=== PATIENT | male | born 1940 | race Caucasian/White ===

== ENCOUNTER → 2020-10-28 13:27 | Outpatient (BNVA) | payer MEDICARE, OTHER, SELFPAY | PROVIDERS: PCP Internal Medicine; Visit Provider Urology | DX: Z13.89 Encounter for screening for other disorder (principal) | CPT/HCPCS: Q3014 ==

== ENCOUNTER → 2021-10-28 14:09 | Outpatient (BNVA) | payer MEDICARE, OTHER, SELFPAY | PROVIDERS: PCP Internal Medicine; Visit Provider Urology | DX: N40.1 Benign prostatic hyperplasia with lower urinary tract symptoms (principal); R35.1 Nocturia; Z79.899 Other long term (current) drug therapy | CPT/HCPCS: 51798; 99212 ==

== ENCOUNTER 2022-12-22 15:36 | Outpatient (AMB) | payer MEDICARE, OTHER, SELFPAY ==
--- NOTE | 2022-12-22 15:41 | A.OFFVIS_ITS ---
Intake Intake Visit Reasons: yearly follow up/PVR Intake Note: Patient is Present for Follow Up Urology Medication: Finasteride Antibiotic Allergies: Penicillins Blood Thinners: Xarelto PVR:60 Allergies BIBI Inhibitors [BIBI INHIBITORS] Allergy (Severe, Verified 10/27/21 15:33) SWELLING penicillin V Allergy (Unknown, Verified 10/27/21 15:33) swelling Penicillins [PENICILLINS] Allergy (Unknown, Verified 10/27/21 15:33) RASH BIBI inhipitors Allergy (Unknown, Uncoded 10/27/21 15:33) swelling Medication List - Last Reconciled 12/22/22 by Kenneth Mejía MD finasteride 5 mg PO DAILY 90 days furosemide 20 mg PO DAILY PRN glyburide 5 mg PO DAILY losartan 25 mg PO DAILY metformin ER 1,500 mg PO BEDTIME metoprolol tartrate 0 mg PO rivaroxaban (Xarelto) 20 mg PO DAILY rosuvastatin 5 mg PO DAILY spironolactone 25 mg PO DAILY HPI HPI Comments History of Present Illness Details Mo is a pleasant male. He is a patient Dr. Ambriz. 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[employer] Lower urinary tract symptoms Patient here for further evaluation of lower urinary tract symptoms Current therapy finasteride PSA - 10/11 0.9, 10/12 0.9 Will maintain current therapy with yearly evaluation [facility] Medical History (Updated 02/10/23 @ 16:48 by Kenneth Mejía MD) Nocturia Hyperlipidemia HTN (hypertension) Benign prostatic hyperplasia with lower urinary tract symptoms Surgical History History of surgery Review of Systems Const Denies chills and Denies fever(s) Card Reports no additional complaints and Denies syncope Resp Denies cough GI Denies abdominal pain and Denies heartburn Reports as per HPI and Denies change in libido Neuro Denies syncope Psych Denies change in libido Endo Denies change in libido Physical Exam Const General: cooperative, healthy appearing, comfortable and no acute distress Orientation/consciousness: patient oriented x3 HEENT Face and sinus: Yes normal facial exam Mouth: moist mucous membranes Neck Neck: Yes normal visual inspection, Yes full ROM and Yes trachea midline Chest Chest palpation & inspection: normal inspection of the chest Resp Effort & Inspection: normal respiratory effort, able to speak in complete sentences and no respiratory distress GI Inspection: Yes normal to inspection Back/Spine/Pelvis Cervical Spine: normal cervical lordosis Thoracic/Lumbar Spine: thoracic and lumbar spine normal to inspection Skin General skin exam: no rashes or lesions noted Neuro General: patient oriented x3, gait normal, tone normal and moves all extremities Extrem General: Yes normal to inspection and Yes capillary refill normal Office Procedures Post Void Residual Post Residual Void Post Void Residual (PVR): 60 [id number] Void Residual by ultrasound Assessment & Plan Assessment & Plan (1) Benign prostatic hyperplasia with lower urinary tract symptoms: Code(s): N40.1 - Benign prostatic hyperplasia with lower urinary tract symptoms (2) Nocturia: Code(s): R35.1 - Nocturia Plan Continue yearly review Orders: Orders AMB Post Void Residual by ultrasound 12/22/22 N40.1 - Benign prostatic hyperplasia with lower urinary tract symptoms Prostate Specific Antigen 364 Days N40.1 - Benign prostatic hyperplasia with lower urinary tract symptoms Patient Instructions: Imaging studies, laboratory and physical exam results were discussed and reviewed in detail. No major barriers to patient understanding were identified. An opportunity to ask questions regarding the treatment plan was provided. All questions were answered. The patient expressed understanding and agreement with the above treatment plan. The patient is aware they should contact our office by phone for worsening of their current condition or the appearance of new urologic symptoms. Compliance is encouraged with any medications and followup testing that is ordered. It is a privilege to participate in the urologic care of your patient. If you have any questions or concerns regarding treatment for the above conditions, or other urologic issues, please do not hesitate to contact me. The office telephone contact is [phone]. This note is constructed using voice recognition software. While every effort has been made to ensure accuracy embedded software development engineer errors may have been included. Yours sincerely, Dr Kenneth Mejía MD, [facility] - Urology Providers of Expert, Compassionate Care for the Genitourinary System Coding Level of Care Code Est Pt Level 4 (92319) Diagnoses Benign prostatic hyperplasia with lower urinary tract symptoms N40.1 Nocturia R35.1 CPT Codes Post Residual Void - PVR CPT Code: 85512-Siaf Void Residual by ultrasound ([id number])
== END 2022-12-22 16:19 | disposition home or self-care (01) ==
PROVIDERS: Visit Provider Urology
DX: N40.1 Benign prostatic hyperplasia with lower urinary tract symptoms (principal); R35.1 Nocturia
CPT/HCPCS: 99213

== ENCOUNTER → 2022-12-22 15:36 | Outpatient (BNVA) | payer MEDICARE, OTHER, SELFPAY | PROVIDERS: Visit Provider Urology | DX: N40.1 Benign prostatic hyperplasia with lower urinary tract symptoms (principal); R35.1 Nocturia; Z79.899 Other long term (current) drug therapy | CPT/HCPCS: 51798; 99212 ==

== ENCOUNTER 2023-04-27 12:02 | Outpatient (REF) | payer MEDICARE, OTHER, SELFPAY ==
[2023-04-27 14:21] LABS: Appearance Urine Clear; Color Urine Yellow; Glucose Urine UA Negative (Negative); Leukocyte Esterase Urine Negative (Negative); Nitrite Urine Negative (Negative); Specific Gravity - Urine <= 1.005 (1.005-1.025); UMIC TRIGGER UA YES; Urine Blood Large (3+) (Negative); Urine Ketones Negative (Negative); Urine Protein Negative (Neg-Trace)
[2023-04-27 14:36] LABS: Bacteria Urine None Seen (None Seen); Hyaline Casts Urine 0-2 /LPF (0-2); RBC Urine 0-2 /HPF (0-2); Squamous Epithelial Cell Urine 0-2 /HPF (0-2); WBC Urine 0-5 /HPF (0-5)
== END 2023-04-27 12:03 | disposition home or self-care (01) ==
LOC: HO.WFDLDS 12:02
PROVIDERS: Visit Provider Urology
DX: N40.1 Benign prostatic hyperplasia with lower urinary tract symptoms (principal)
CPT/HCPCS: 81001; 87086

== ENCOUNTER 2023-06-28 10:49 | Outpatient (REF) | payer MEDICARE, OTHER, SELFPAY ==
[2023-06-28 20:24] LABS: Urine Cytology See Pathology rpt
== END 2023-06-28 10:50 | disposition home or self-care (01) ==
LOC: HO.LAB 10:49
PROVIDERS: PCP Internal Medicine; Visit Provider Urology
DX: R35.1 Nocturia (principal); R31.29 Other microscopic hematuria; N40.1 Benign prostatic hyperplasia with lower urinary tract symptoms
CPT/HCPCS: 52000; 81003; 88112; 99212

== ENCOUNTER 2023-06-28 10:49 | Outpatient (AMB) | payer MEDICARE, OTHER, SELFPAY ==
--- NOTE | 2023-06-28 11:03 | MHC.OFFVIS ---
Intake Visit Reasons: cysto/nocturia/hematuria/ER follow up Intake Note: Patient is Present for Cystoscopy for hematuria Urology Med: Finasteride Antibiotic Allergy: Penicillin Blood Thinner:Xarelton, Patient states aspirin URO- G Disposable Cystoscope lot: [id number] exp:03/24/2026 Patient states that he was informed to take blood thinner daily and due to him taking Blood thinner daily patient was experiencing blood in urine Patient states that since he stopped the antibiotic he has not seen any blood in his urine states that it has been 3 weeks with no blood Allergies BIBI Inhibitors [BIBI INHIBITORS] Allergy (Severe, Verified 06/28/23 11:08) SWELLING penicillin V Allergy (Unknown, Verified 06/28/23 11:08) swelling Penicillins [PENICILLINS] Allergy (Unknown, Verified 06/28/23 11:08) RASH BIBI inhipitors Allergy (Unknown, Uncoded 06/28/23 11:08) swelling Medication List - Last Reconciled 06/28/23 by Kenneth Mejía MD finasteride 5 mg PO DAILY 90 days furosemide 20 mg PO DAILY PRN glyburide 5 mg PO DAILY losartan 25 mg PO DAILY metformin ER 1,500 mg PO BEDTIME metoprolol tartrate 0 mg PO rivaroxaban (Xarelto) 20 mg PO DAILY rosuvastatin 5 mg PO DAILY spironolactone 25 mg PO DAILY HPI Comments Details: Mo is a pleasant male. He is a patient Dr. Ambriz. He is seen for the following urologic conditions - lower urinary tract symptoms Episode of hematuria. Had been on aspirin plus Xarelto for AF. Improved after came off aspirin. 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 Prostatic regrowth Neovascularity Likely cause of hematuria Did have leukocytes and glucose in urine. states has had high sugars. Lower urinary tract symptoms Patient here for further evaluation of lower urinary tract symptoms Current therapy finasteride PSA - 10/11 0.9, 10/12 0.9 Will maintain current therapy with yearly evaluation [facility] Medical History Nocturia Hyperlipidemia HTN (hypertension) Benign prostatic hyperplasia with lower urinary tract symptoms Surgical History History of surgery Review of Systems Const Denies chills and Denies fever(s) Card Reports no additional complaints and Denies syncope Resp Denies cough GI Denies abdominal pain and Denies heartburn Reports as per HPI and Denies change in libido Neuro Denies syncope Psych Denies change in libido Endo Denies change in libido Physical Exam Const General: cooperative, healthy appearing, comfortable and no acute distress Orientation/consciousness: patient oriented x3 HEENT Face and sinus: Yes normal facial exam Mouth: moist mucous membranes Neck Neck: Yes normal visual inspection, Yes full ROM and Yes trachea midline Chest Chest palpation & inspection: normal inspection of the chest Resp Effort & Inspection: normal respiratory effort, able to speak in complete sentences and no respiratory distress GI Inspection: Yes normal to inspection Back/Spine/Pelvis Cervical Spine: normal cervical lordosis Thoracic/Lumbar Spine: thoracic and lumbar spine normal to inspection Skin General skin exam: no rashes or lesions noted Neuro General: patient oriented x3, gait normal, tone normal and moves all extremities Extrem General: Yes normal to inspection and Yes capillary refill normal Office Procedures Cystoscopy Consent Discussed risk and benefit or proposed procedure with the patient. Information consent for procedure given to the patient. Discussed technical aspects, risks, benefits and alternatives in full. Addressed all of the patient's questions and concerns regarding the procedure. The patient demonstrated knowledge and understanding. They wish to proceed with this procedure. Preparation The patient was prepped in the usual manner. A stone gang sawyer was present and in the room. Genitalia was prepped with betadine solution in a sterile manner. Lidocaine Jelly 2% was placed into the urethra and 16Fr flexible Olympus cystoscope was inserted into the meatus after adequate lubrication. Procedure Cystoscopy performed using a disposable Urovue digital 16 Divehi cystoscope. 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 Wind Turbine Mechanical Engineer 10 mL intra-urethral 10 mL nitrofurantoin monohydrate/macrocrystals 100 mg capsule Performing Provider: Kenneth Mejía MD Performing Location: [facility] [place] [facility] Administered by: Mary Hopkins RN on 06/28/23 11:21 Dose Route Admin Location Dispensed Lot Number Expiration Date [place] [employer]urbine Mechanical Engineer 100 mg PO 1 cap naproxen 500 mg tablet Performing Provider: Kenneth Mejía MD Performing Location: [facility] [place] [facility] Administered by: Mary Hopkins RN on 06/28/23 11:21 Dose Route Admin Location Dispensed Lot Number Expiration Date [place] [employer] Mechanical Engineer 500 mg PO 1 tab Results AMB Urinalysis, Automated UA Leukoctes 15 Yani/uL Last Edit by DARRYN Candelario on 06/28/23 11:16 UA Nitrite Negative Last Edit by DARRYN Candelario on 06/28/23 11:16 UA Urobilinogen 0.2 mg/dL Last Edit by DARRYN Candelario on 06/28/23 11:16 UA Protein 15 mg/dL Last Edit by DARRYN Candelario on 06/28/23 11:16 UA pH 6.0 Last Edit by DARRYN Candelario on 06/28/23 11:16 UA Blood 10 Bunny/uL Last Edit by DARRYN Candelario on 06/28/23 11:16 UA Specific Richards 1.015 Last Edit by DARRYN Candelario on 06/28/23 11:16 UA Ketone Negative Last Edit by DARRYN Candelario on 06/28/23 11:16 UA Bilirubin 0 mg/dL Last Edit by DARRYN Candelario on 06/28/23 11:16 UA Glucose 500 mg/dL Last Edit by DARRYN Candelario on 06/28/23 11:16 Results Reviewed Results Reviewed: Laboratory Last Values Urine pH (Auto) 6.0 06/28/23 11:12 Specific Richards (Auto) 1.015 06/28/23 11:12 Urine Protein (Auto) 15 mg/dL 06/28/23 11:12 Glucose (UA)(Auto) 500 mg/dL 06/28/23 11:12 Urine Ketones (Auto) Negative 06/28/23 11:12 Urine Blood (Auto) 10 Bunny/uL 06/28/23 11:12 Urine Nitrite (Auto) Negative 06/28/23 11:12 Urine Bilirubin (Auto) 0 mg/dL 06/28/23 11:12 Urine Urobilinogen (Auto) 0.2 mg/dL 06/28/23 11:12 Leukocyte Esterase (Auto) 15 Yani/uL 06/28/23 11:12 Assessment & Plan Assessment & Plan (1) Nocturia: Code(s): R35.1 - Nocturia Category: Medical (2) Benign prostatic hyperplasia with lower urinary tract symptoms: Code(s): N40.1 - Benign prostatic hyperplasia with lower urinary tract symptoms Category: Medical (3) Gross hematuria: Code(s): R31.0 - Gross hematuria Category: Medical Plan Twelve month follow-up Orders: Orders AMB Cystoscopy Today N40.1 - Benign prostatic hyperplasia with lower urinary tract symptoms Urine Cytology Today R31.29 - Other microscopic hematuria AMB Urinalysis Automated Today N40.1 - Benign prostatic hyperplasia with lower urinary tract symptoms, Z13.9 - Encounter for screening, unspecified Medications: Refilled finasteride 5 mg PO DAILY 90 days 90 tabs 3RF N40.1 - Benign prostatic hyperplasia with lower urinary tract symptoms Patient Instructions: Imaging studies, laboratory and physical exam results were discussed and reviewed in detail. No major barriers to patient understanding were identified. An opportunity to ask questions regarding the treatment plan was provided. All questions were answered. The patient expressed understanding and agreement with the above treatment plan. The patient is aware they should contact our office by phone for worsening of their current condition or the appearance of new urologic symptoms. Compliance is encouraged with any medications and followup testing that is ordered. It is a privilege to participate in the urologic care of your patient. If you have any questions or concerns regarding treatment for the above conditions, or other urologic issues, please do not hesitate to contact me. The office telephone contact is [phone]. This note is constructed using voice recognition software. While every effort has been made to ensure accuracy electrical line mechanic errors may have been included. Yours sincerely, Dr Kenneth Mejía MD, [facility] - Urology Providers of Expert, Compassionate Care for the Genitourinary System Coding Level of Care Code Est Pt Level 4 (44904) Diagnoses Nocturia R35.1 Benign prostatic hyperplasia with lower urinary tract symptoms N40.1 Gross hematuria R31.0 CPT Codes Cystoscopy - CPT: 47815-[id number] ([id number])
== END 2023-06-28 11:46 | disposition home or self-care (01) ==
PROVIDERS: PCP Internal Medicine; Visit Provider Urology
DX: R35.1 Nocturia (principal); N40.1 Benign prostatic hyperplasia with lower urinary tract symptoms; R31.0 Gross hematuria; Z13.9 Encounter for screening, unspecified
CPT/HCPCS: 52000; 99214

== ENCOUNTER 2024-06-27 13:19 | Outpatient (AMB) | payer MEDICARE, OTHER, SELFPAY ==
--- NOTE | 2024-06-27 13:38 | A.OFFVIS_ITS ---
Intake Visit Reasons: 1y/PVR Intake Note: Patient is present for 1Y/PVR Urology Medication:FINASTERIDE Antibiotic Allergy:PENICILLINS Blood Thinner:RIVAROXABAN TODAY'S PVR:48ML'S Loading Machine Operator Required: No Allergies BIBI Inhibitors [BIBI INHIBITORS] Allergy (Severe, Verified 06/27/24 13:39) SWELLING penicillin V Allergy (Unknown, Verified 06/27/24 13:39) swelling Penicillins [PENICILLINS] Allergy (Unknown, Verified 06/27/24 13:39) RASH BIBI inhipitors Allergy (Unknown, Uncoded 06/27/24 13:39) swelling HPI Comments Details: Mo is a pleasant male. He is a patient Dr. Ambriz. He is seen for the following urologic conditions - lower urinary tract symptoms 12 month follow-up Trace blood Trace glucose Continue finasteride Hematuria Had been on combination aspirin prostate Xarelto for AF Cystoscopy 07/14 prostatic regrowth Lower urinary tract symptoms Patient here for further evaluation of lower urinary tract symptoms Current therapy finasteride PSA - 10/11 0.9, 10/12 0.9 Will maintain current therapy with yearly evaluation [facility] Medical History Nocturia Hyperlipidemia HTN (hypertension) Benign prostatic hyperplasia with lower urinary tract symptoms Surgical History History of surgery Review of Systems Const Denies chills and Denies fever(s) Card Reports no additional complaints and Denies syncope Resp Denies cough GI Denies abdominal pain and Denies heartburn Reports as per HPI and Denies change in libido Neuro Denies syncope Psych Denies change in libido Endo Denies change in libido Physical Exam Const General: cooperative, healthy appearing, comfortable and no acute distress Orientation/consciousness: patient oriented x3 HEENT Face and sinus: Yes normal facial exam Mouth: moist mucous membranes Neck Neck: Yes normal visual inspection, Yes full ROM and Yes trachea midline Chest Chest palpation & inspection: normal inspection of the chest Resp Effort & Inspection: normal respiratory effort, able to speak in complete sentences and no respiratory distress GI Inspection: Yes normal to inspection Back/Spine/Pelvis Cervical Spine: normal cervical lordosis Thoracic/Lumbar Spine: thoracic and lumbar spine normal to inspection Skin General skin exam: no rashes or lesions noted Neuro General: patient oriented x3, gait normal, tone normal and moves all extremities Extrem General: Yes normal to inspection and Yes capillary refill normal Office Procedures Post Void Residual Post Residual Void Post Void Residual (PVR): 48 [id number] Void Residual by ultrasound Assessment & Plan Assessment & Plan (1) Benign prostatic hyperplasia with lower urinary tract symptoms: Code(s): N40.1 - Benign prostatic hyperplasia with lower urinary tract symptoms Category: Medical (2) Nocturia: Code(s): R35.1 - Nocturia Category: Medical (3) Gross hematuria: Code(s): R31.0 - Gross hematuria Category: Medical Plan Twelve month follow-up Orders: Orders AMB Urinalysis Automated Today Z13.9 - Encounter for screening, unspecified Medications: Refilled finasteride 5 mg PO DAILY 90 days 90 tabs 3RF N40.1 - Benign prostatic hyperplasia with lower urinary tract symptoms Patient Instructions: This note is constructed using voice recognition software. While every effort has been made to ensure accuracy washtub worker helper errors may have been included. Imaging studies, laboratory and physical exam results were discussed and reviewed in detail. No major barriers to patient understanding were identified. An opportunity to ask questions regarding the treatment plan was provided. All questions were answered. The patient expressed understanding and agreement with the above treatment plan. The patient is aware they should contact our office by phone for worsening of their current condition or the appearance of new urologic symptoms. Compliance is encouraged with any medications and followup testing that is ordered. It is a privilege to participate in the urologic care of your patient. If you have any questions or concerns regarding treatment for the above conditions, or other urologic issues, please do not hesitate to contact me. The office telephone contact is [phone]. Sincerely, Dr Kenneth Mejía MD, [facility] - Urology Compassionate Specialist Care for the Genitourinary System Coding Level of Care Code Est Pt Level 4 (70608) Complex EM visit Add On G2211 Diagnoses Benign prostatic hyperplasia with lower urinary tract symptoms N40.1 Nocturia R35.1 Gross hematuria R31.0 CPT Codes Post Residual Void - PVR CPT Code: 31181-Tejp Void Residual by ultrasound ([id number])
== END 2024-06-27 14:15 | disposition home or self-care (01) ==
LOC: HO.HUSH 13:20
PROVIDERS: PCP Internal Medicine; Visit Provider Urology
DX: N40.1 Benign prostatic hyperplasia with lower urinary tract symptoms (principal); R35.1 Nocturia; R31.0 Gross hematuria; Z13.9 Encounter for screening, unspecified
CPT/HCPCS: 99214; G2211

== ENCOUNTER → 2024-06-27 13:19 | Outpatient (BNVA) | payer MEDICARE, OTHER, SELFPAY | PROVIDERS: PCP Internal Medicine; Visit Provider Urology | DX: N40.1 Benign prostatic hyperplasia with lower urinary tract symptoms (principal); R31.9 Hematuria, unspecified; R35.1 Nocturia; R31.0 Gross hematuria | CPT/HCPCS: 51798; 81003; 99212 ==